=== PATIENT | female | born 1980 | race African-American/Black ===

== ENCOUNTER 2018-06-05 20:03 | Emergency (ER) | payer SELFPAY ==
[~2018-06-05] VITALS: Ht 162.6 cm; Wt 80.7 kg
[2018-06-05 21:02] LABS: Basophils # (auto) 0 uL; Basophils % (auto) 0.4 % (0.0-2.0); Eosinophils # (auto) 0 uL; Eosinophils % (auto) 0.4 % (0.0-7.0); Hematocrit 39.6 % (36.0-46.0); Lymphocytes # (auto) 2.6 uL; Lymphocytes % (auto) 25.6 % (10.0-50.0); Mean Corpuscular Hemoglobin 28.8 pg (28.0-32.0); Mean Corpuscular Hgb Conc. 32.9 g/dL (32.0-36.0); Mean Corpuscular Volume 87.4 fL (80.0-100.0); Monocytes # (auto) 0.7 uL; Monocytes % (auto) 7.2 % (0.0-12.0); Neutrophils # (auto) 6.9 uL; Neutrophils % (auto) 66.4 % (37.0-80.0); Nucleated Red Blood Cells % 0.1 %; Platelet Count (auto) 327 10^3/uL (140-450); Red Blood Cells 4.53 10^6/uL (4.0-5.20); Red Cell Distribution Width 15.7 % (11.8-14.3); White Blood Cell 10.3 10^3/uL (4.4-10.8)
[2018-06-05 21:19] LABS: Albumin 3.4 g/dL (3.4-5.0); BUN/Creatinine Ratio 15.2; Calcium 8.7 mg/dL (8.5-10.1); Potassium 4.5 mmol/L (3.5-5.1)
[2018-06-05 21:19] LABS: Urine Bacteria NONE SEEN /hpf (None Seen); Urine Blood 3+ /uL (Negative); Urine Specific Gravity 1.021 (1.001-1.035); Urine WBC 54 /hpf (0 - 5)
[2018-06-05 21:22] LABS: Bilirubin, Total 0.2 mg/dL (0.2-1.0); Total Protein 7.8 g/dL (6.4-8.2)
[2018-06-06 02:55] VITALS: BP 145/80
== END 2018-06-06 03:00 | disposition home or self-care (01) ==
LOC: ER 20:03
DX: O46.91 Antepartum hemorrhage, unspecified, first trimester (principal); O20.0 Threatened abortion; O26.891 Other specified pregnancy related conditions, first trimester; R10.2 Pelvic and perineal pain; Z3A.01 Less than 8 weeks gestation of pregnancy
CPT/HCPCS: 36415; 76801; 76817; 80053; 81001; 81025; 84702; 85025